=== PATIENT | male | born 1985 | race Caucasian/White ===

== ENCOUNTER 2017-09-14 06:19 | Emergency (ER) | payer OTHER ==
[~2017-09-14] VITALS: Ht 177.8 cm; Wt 92.1 kg
[2017-09-14 06:44] VITALS: Ht 177.8 cm; Wt 92.1 kg
[2017-09-14 11:55] VITALS: BP 114/88
== END 2017-09-14 11:55 | disposition home or self-care (01) ==
LOC: ED 06:19
DX: J11.1 Influenza due to unidentified influenza virus with other respiratory manifestations (principal); J98.01 Acute bronchospasm
CPT/HCPCS: 87804; J2930; J7613; J7644